=== PATIENT | female | born 1950 | race Caucasian/White ===

== ENCOUNTER → 2017-04-20 | Outpatient (CLI) | payer OTHER ==
[~2017-04-20] MED LIST: ASPIRIN81 M1 PO; CARDIZEM LA180 MG PO; CELEXA40 MG PO; CEPHALEXIN500 M1 PO; CLARITIN10 MG PO; LEXAPRO20 MG PO; MEDROL DOSEPAK4 MG PO; TRIAMTERENE & H1 CAP PO; VICODIN 5/500 505 MG PO; VISTARIL25 M1 PO; XANAX0.5 MG PO; ZOCOR10 MG PO
== END | disposition home or self-care (01) ==
LOC: LAB 01:26 → CT 11:00 → LAB 11:00
DX: J44.9 Chronic obstructive pulmonary disease, unspecified (principal); I25.10 Atherosclerotic heart disease of native coronary artery without angina pectoris; R93.8 Abnormal findings on diagnostic imaging of other specified body structures

== ENCOUNTER → 2017-04-27 | Outpatient (CLI) | payer OTHER | END | disposition home or self-care (01) | LOC: WOUNDCARE 10:21 | DX: I87.332 Chronic venous hypertension (idiopathic) with ulcer and inflammation of left lower extremity (principal); L97.222 Non-pressure chronic ulcer of left calf with fat layer exposed; I10 Essential (primary) hypertension; F41.9 Anxiety disorder, unspecified; F32.9 Major depressive disorder, single episode, unspecified; E78.00 Pure hypercholesterolemia, unspecified; F17.210 Nicotine dependence, cigarettes, uncomplicated; Z90.710 Acquired absence of both cervix and uterus; Z72.89 Other problems related to lifestyle ==

== ENCOUNTER → 2017-05-04 | Outpatient (CLI) | payer OTHER | END | disposition home or self-care (01) | LOC: WOUNDCARE 01:10 | DX: I87.332 Chronic venous hypertension (idiopathic) with ulcer and inflammation of left lower extremity (principal); L97.222 Non-pressure chronic ulcer of left calf with fat layer exposed; S81.801D Unspecified open wound, right lower leg, subsequent encounter; F41.9 Anxiety disorder, unspecified; F32.9 Major depressive disorder, single episode, unspecified; E78.00 Pure hypercholesterolemia, unspecified; F17.210 Nicotine dependence, cigarettes, uncomplicated; Z72.89 Other problems related to lifestyle; Z90.710 Acquired absence of both cervix and uterus; X58.XXXD Exposure to other specified factors, subsequent encounter ==

== ENCOUNTER → 2017-05-11 | Outpatient (CLI) | payer OTHER | LOC: WOUNDCARE 04:00 | DX: I87.332 Chronic venous hypertension (idiopathic) with ulcer and inflammation of left lower extremity (principal); L97.222 Non-pressure chronic ulcer of left calf with fat layer exposed; G89.29 Other chronic pain; F41.9 Anxiety disorder, unspecified; E78.00 Pure hypercholesterolemia, unspecified; F32.9 Major depressive disorder, single episode, unspecified; F17.210 Nicotine dependence, cigarettes, uncomplicated; Z72.89 Other problems related to lifestyle; Z90.710 Acquired absence of both cervix and uterus ==

== ENCOUNTER → 2017-05-18 | Outpatient (CLI) | payer OTHER | LOC: WOUNDCARE 01:08 | DX: I87.332 Chronic venous hypertension (idiopathic) with ulcer and inflammation of left lower extremity (principal); L97.222 Non-pressure chronic ulcer of left calf with fat layer exposed; G89.29 Other chronic pain; F41.9 Anxiety disorder, unspecified; F32.9 Major depressive disorder, single episode, unspecified; E78.00 Pure hypercholesterolemia, unspecified; F17.210 Nicotine dependence, cigarettes, uncomplicated; Z72.89 Other problems related to lifestyle; Z90.710 Acquired absence of both cervix and uterus ==

== ENCOUNTER → 2017-05-25 | Outpatient (CLI) | payer OTHER | END | disposition home or self-care (01) | LOC: WOUNDCARE 04:37 | DX: L97.821 Non-pressure chronic ulcer of other part of left lower leg limited to breakdown of skin (principal); I10 Essential (primary) hypertension; F41.9 Anxiety disorder, unspecified; F32.9 Major depressive disorder, single episode, unspecified; F17.210 Nicotine dependence, cigarettes, uncomplicated; E78.00 Pure hypercholesterolemia, unspecified; Z90.710 Acquired absence of both cervix and uterus; Z72.89 Other problems related to lifestyle ==

== ENCOUNTER → 2017-06-01 | Outpatient (CLI) | payer OTHER | END | disposition home or self-care (01) | LOC: WOUNDCARE 03:25 | DX: I87.332 Chronic venous hypertension (idiopathic) with ulcer and inflammation of left lower extremity (principal); L97.222 Non-pressure chronic ulcer of left calf with fat layer exposed; G89.29 Other chronic pain; F41.9 Anxiety disorder, unspecified; F32.9 Major depressive disorder, single episode, unspecified; E78.00 Pure hypercholesterolemia, unspecified; Z90.710 Acquired absence of both cervix and uterus; F17.210 Nicotine dependence, cigarettes, uncomplicated; Z72.89 Other problems related to lifestyle ==

== ENCOUNTER → 2017-06-08 | Outpatient (CLI) | payer OTHER | END | disposition home or self-care (01) | LOC: WOUNDCARE 04:27 | DX: I87.332 Chronic venous hypertension (idiopathic) with ulcer and inflammation of left lower extremity (principal); L97.222 Non-pressure chronic ulcer of left calf with fat layer exposed; F41.9 Anxiety disorder, unspecified; G89.29 Other chronic pain; I10 Essential (primary) hypertension; F32.9 Major depressive disorder, single episode, unspecified; E78.00 Pure hypercholesterolemia, unspecified; F17.210 Nicotine dependence, cigarettes, uncomplicated; Z72.89 Other problems related to lifestyle; Z90.710 Acquired absence of both cervix and uterus ==

== ENCOUNTER → 2018-02-07 | Outpatient (CLI) | payer MEDICARE, MEDICAID | END | disposition home or self-care (01) | LOC: CT 07:57 | DX: Z13.6 Encounter for screening for cardiovascular disorders (principal); I25.10 Atherosclerotic heart disease of native coronary artery without angina pectoris; R07.81 Pleurodynia ==

== ENCOUNTER 2019-03-15 15:16 | Emergency (ER) | payer MEDICARE ==
[~2019-03-15] VITALS: Ht 152.4 cm; Wt 59.0 kg
[2019-03-15] MEDS ORDERED: DOXYCYCLINE100 M3 PO (16:59)
== END 2019-03-15 20:28 | disposition home or self-care (01) ==
LOC: ED 15:16
DX: S81.811A Laceration without foreign body, right lower leg, initial encounter (principal); L08.89 Other specified local infections of the skin and subcutaneous tissue; Z90.710 Acquired absence of both cervix and uterus; Z98.51 Tubal ligation status; Z79.899 Other long term (current) drug therapy; Z79.82 Long term (current) use of aspirin; Z88.6 Allergy status to analgesic agent; Z88.2 Allergy status to sulfonamides; Z91.013 Allergy to seafood; W01.0XXA Fall on same level from slipping, tripping and stumbling without subsequent striking against object, initial encounter; Y93.89 Activity, other specified; Y92.091 Bathroom in other non-institutional residence as the place of occurrence of the external cause; Y99.9 Unspecified external cause status

== ENCOUNTER → 2019-04-05 | Outpatient (CLI) | payer MEDICARE ==
[~2019-04-05] MED LIST changes: +DOXYCYCLINE100 M3 PO
== END | disposition home or self-care (01) ==
LOC: US 01:53
DX: I73.9 Peripheral vascular disease, unspecified (principal); I10 Essential (primary) hypertension; Z87.891 Personal history of nicotine dependence

== ENCOUNTER 2020-10-29 18:09 | Observation (INO) | payer MEDICARE, MEDICAID ==
[~2020-10-29] VITALS: Ht 152.4 cm; Wt 73.7 kg
[2020-10-29 18:14] VITALS: BP 115/71
[2020-10-29 18:53] LABS: BASO # 0.1 10*3/uL (0.0-0.1); BASO % 0.8 % (0.0-1.0); EOS # 0.1 10*3/uL (0.0-0.4); EOS % 1.1 % (1.0-4.0); HEMATOCRIT 37.3 % (37.0-47.0); LYMPH # 2.2 10*3/uL (1.3-4.4); LYMPH % 34.1 % (27.0-41.0); MEAN CORPUSCULAR HGB 32.8 pg (27.0-31.0); MEAN CORPUSCULAR HGB CONC 33.5 g/dl (33.0-37.0); MEAN PLATELET VOLUME 8.9 fl (9.6-12.3); MONO # 0.4 10*3/uL (0.1-1.0); MONO % 6.4 % (3.0-9.0); NEUT # 3.8 10*3/uL (2.3-7.9); NEUT % 57.3 % (47.0-73.0); PLATELET COUNT AUTOMATED 313 10*3/uL (130-400); RED BLOOD COUNT 3.81 10*6/uL (4.10-5.10); RED CELL DISTRI WIDTH 12.6 % (0-14.5); WHITE BLOOD COUNT 6.6 10*3/uL (4.8-10.8)
[2020-10-29 18:54] LABS: MEAN CELL VOLUME 97.9 fl (81.0-99.0)
[2020-10-29 19:06] LABS: ALBUMIN 3.5 gm/dl (3.1-4.5); ALKALINE PHOSPHATASE 124 U/L (45-117); BUN 7 mg/dl (7-24); CHLORIDE 95 mmol/L (98-107); POTASSIUM 4.6 mmol/L (3.5-5.1); SGOT/AST 21 IU/L (3-35); SGPT/ALT 33 U/L (12-78); SODIUM 126 mmol/L (136-145); TOTAL PROTEIN 7.2 gm/dL (6.4-8.2)
[2020-10-29 19:12] LABS: TROPONIN I < 0.015 ng/ml (<0.045)
[2020-10-29 21:07] VITALS: BP 115/81
[2020-10-29 23:00] VITALS: BP 116/78
[2020-10-30 06:32] LABS: CHLORIDE 99 mmol/L (98-107); POTASSIUM 4.1 mmol/L (3.5-5.1); SODIUM 129 mmol/L (136-145)
[2020-10-30 06:42] LABS: BUN 15 mg/dl (7-24); CREATININE 0.71 mg/dL (0.55-1.02)
[2020-10-30 08:00] VITALS: BP 125/81
[2020-10-30 12:00] VITALS: BP 104/66
[2020-10-30 16:00] VITALS: BP 102/63
[2020-10-30 21:07] VITALS: BP 93/66
[2020-10-31 00:19] VITALS: BP 104/67
[2020-10-31 06:39] LABS: BASO % 0.6 % (0.0-1.0); EOS # 0.1 10*3/uL (0.0-0.4); EOS % 1.9 % (1.0-4.0); HEMATOCRIT 35.2 % (37.0-47.0); LYMPH # 2.2 10*3/uL (1.3-4.4); LYMPH % 34.9 % (27.0-41.0); MONO # 0.4 10*3/uL (0.1-1.0); MONO % 6.1 % (3.0-9.0); NEUT # 3.5 10*3/uL (2.3-7.9); NEUT % 56.2 % (47.0-73.0); PLATELET COUNT AUTOMATED 316 10*3/uL (130-400); RED BLOOD COUNT 3.52 10*6/uL (4.10-5.10); WHITE BLOOD COUNT 6.2 10*3/uL (4.8-10.8)
[2020-10-31 06:54] LABS: BUN 15 mg/dl (7-24); CHLORIDE 100 mmol/L (98-107); CREATININE 0.71 mg/dL (0.55-1.02); POTASSIUM 4.4 mmol/L (3.5-5.1); SODIUM 132 mmol/L (136-145)
[2020-10-31 08:00] VITALS: BP 112/65
[2020-10-31 16:00] VITALS: BP 111/62
[2020-10-31 20:16] VITALS: BP 108/65
[2020-11-01 00:31] VITALS: BP 131/71
[2020-11-01] MEDS ORDERED: FUROSEMIDE40 MG PO (07:01)
[2020-11-01] MEDS ORDERED: CARDIZEM CD240 M1 PO (07:01)
[2020-11-01] MEDS ORDERED: CEFUROXIME AXE250 MG PO (07:02)
[2020-11-01 08:00] VITALS: BP 142/78
== END 2020-11-01 11:34 | disposition home health service (06) ==
LOC: ED 18:09 → EDHOLD 20:17 → 4E 20:50
PROVIDERS: Internal Medicine; ADMIT Internal Medicine; ATTEND Internal Medicine
DX: E87.1 Hypo-osmolality and hyponatremia (principal); R79.9 Abnormal finding of blood chemistry, unspecified; F17.210 Nicotine dependence, cigarettes, uncomplicated; J98.11 Atelectasis; J90 Pleural effusion, not elsewhere classified; I10 Essential (primary) hypertension; R62.7 Adult failure to thrive; M54.5 Low back pain; G89.29 Other chronic pain; J44.9 Chronic obstructive pulmonary disease, unspecified; F10.10 Alcohol abuse, uncomplicated; E87.8 Other disorders of electrolyte and fluid balance, not elsewhere classified; S22.42XA Multiple fractures of ribs, left side, initial encounter for closed fracture; W19.XXXA Unspecified fall, initial encounter; Y93.89 Activity, other specified; Y92.89 Other specified places as the place of occurrence of the external cause; Y99.8 Other external cause status; Z90.710 Acquired absence of both cervix and uterus; Z98.890 Other specified postprocedural states

== ENCOUNTER 2021-04-17 15:25 | Emergency (ER) | payer MEDICARE, MEDICAID ==
[~2021-04-17] VITALS: Ht 152.4 cm; Wt 68.9 kg
[~2021-04-17 15:25] MED LIST changes: +CARDIZEM CD240 M1 PO; +CEFUROXIME AXE250 MG PO; +FUROSEMIDE40 MG PO
[2021-04-18 01:49] LABS: BASO % 0.4 % (0.0-1.0); EOS % 0.8 % (1.0-4.0); HEMATOCRIT 36.5 % (37.0-47.0); LYMPH # 1.8 10*3/uL (1.3-4.4); LYMPH % 35.1 % (27.0-41.0); MEAN CELL VOLUME 97.9 fl (81.0-99.0); MEAN CORPUSCULAR HGB 33.5 pg (27.0-31.0); MEAN CORPUSCULAR HGB CONC 34.2 g/dl (33.0-37.0); MEAN PLATELET VOLUME 9.3 fl (9.6-12.3); MONO # 0.3 10*3/uL (0.1-1.0); MONO % 4.9 % (3.0-9.0); NEUT % 58.4 % (47.0-73.0); PLATELET COUNT AUTOMATED 179 10*3/uL (130-400); RED BLOOD COUNT 3.73 10*6/uL (4.10-5.10); RED CELL DISTRI WIDTH 11.9 % (0-14.5); WHITE BLOOD COUNT 5.1 10*3/uL (4.8-10.8)
[2021-04-18 02:04] LABS: ALBUMIN 3.5 gm/dl (3.1-4.5); ALKALINE PHOSPHATASE 87 U/L (45-117); BUN 10 mg/dl (7-24); CHLORIDE 103 mmol/L (98-107); CREATININE 0.57 mg/dL (0.55-1.02); POTASSIUM 4.6 mmol/L (3.5-5.1); SGOT/AST 19 IU/L (3-35); SGPT/ALT 23 U/L (12-78); SODIUM 135 mmol/L (136-145); TOTAL PROTEIN 6.6 gm/dL (6.4-8.2)
== END 2021-04-18 04:06 | disposition short-term general hospital (02) ==
LOC: ED 15:25
PROVIDERS: Emergency Medicine
DX: S22.088A Other fracture of T11-T12 vertebra, initial encounter for closed fracture (principal); Z88.2 Allergy status to sulfonamides; Z91.013 Allergy to seafood; Z88.6 Allergy status to analgesic agent; Z79.899 Other long term (current) drug therapy; W10.8XXA Fall (on) (from) other stairs and steps, initial encounter; Y93.89 Activity, other specified; Y92.89 Other specified places as the place of occurrence of the external cause; Y99.8 Other external cause status

== ENCOUNTER → 2021-07-20 | Outpatient (CLI) | payer MEDICARE, MEDICAID | END | disposition home or self-care (01) | LOC: RAD 00:29 | PROVIDERS: ATTEND Internal Medicine | DX: M81.0 Age-related osteoporosis without current pathological fracture (principal); M41.84 Other forms of scoliosis, thoracic region; M48.04 Spinal stenosis, thoracic region; M48.02 Spinal stenosis, cervical region; M85.88 Other specified disorders of bone density and structure, other site; Z78.0 Asymptomatic menopausal state ==

== ENCOUNTER → 2021-10-29 | Outpatient (CLI) | payer MEDICARE, MEDICAID | END | disposition home or self-care (01) | LOC: MAMMO 14:17 | PROVIDERS: ATTEND Internal Medicine | DX: Z12.31 Encounter for screening mammogram for malignant neoplasm of breast (principal) ==

== ENCOUNTER → 2021-12-18 | Outpatient (CLI) | payer MEDICARE, MEDICAID ==
[2021-12-18 14:35] LABS: BASO % 0.9 % (0.0-1.0); EOS # 0.1 10*3/uL (0.0-0.4); EOS % 1.1 % (1.0-4.0); HEMATOCRIT 42.8 % (37.0-47.0); LYMPH # 2.2 10*3/uL (1.3-4.4); LYMPH % 47.7 % (27.0-41.0); MEAN CELL VOLUME 94.3 fl (81.0-99.0); MEAN CORPUSCULAR HGB 32.8 pg (27.0-31.0); MEAN CORPUSCULAR HGB CONC 34.8 g/dl (33.0-37.0); MEAN PLATELET VOLUME 9.1 fl (9.6-12.3); MONO # 0.3 10*3/uL (0.1-1.0); MONO % 5.5 % (3.0-9.0); NEUT % 44.6 % (47.0-73.0); PLATELET COUNT AUTOMATED 221 10*3/uL (130-400); RED BLOOD COUNT 4.54 10*6/uL (4.10-5.10); RED CELL DISTRI WIDTH 12.1 % (0-14.5); WHITE BLOOD COUNT 4.6 10*3/uL (4.8-10.8)
[2021-12-18 14:40] LABS: BUN 6 mg/dl (7-24); CHLORIDE 105 mmol/L (98-107); CHOLESTEROL 144 mg/dL (<200); CREATININE 0.72 mg/dL (0.55-1.02); LDL CHOLESTEROL 39 mg/dL (9-159); POTASSIUM 4.3 mmol/L (3.5-5.1); SGOT/AST 16 IU/L (3-35); SODIUM 135 mmol/L (136-145); TOTAL PROTEIN 7.4 gm/dL (6.4-8.2); TRIGLYCERIDES 173 mg/dl (<150)
[2021-12-18 14:45] LABS: ALKALINE PHOSPHATASE 91 U/L (45-117); FREE T4 0.79 ng/dl (0.76-1.46); SGPT/ALT 19 U/L (12-78); T3 UPTAKE 33 % (31-39)
== END | disposition home or self-care (01) ==
LOC: LAB 00:34 → CT 14:00 → LAB 14:00
PROVIDERS: ATTEND Internal Medicine
DX: R91.8 Other nonspecific abnormal finding of lung field (principal); J98.11 Atelectasis; I25.10 Atherosclerotic heart disease of native coronary artery without angina pectoris; I71.2 Thoracic aortic aneurysm, without rupture; I10 Essential (primary) hypertension; E55.9 Vitamin D deficiency, unspecified; Z13.0 Encounter for screening for diseases of the blood and blood-forming organs and certain disorders involving the immune mechanism; Z13.1 Encounter for screening for diabetes mellitus; Z13.21 Encounter for screening for nutritional disorder; Z13.220 Encounter for screening for lipoid disorders; Z13.228 Encounter for screening for other metabolic disorders; Z13.29 Encounter for screening for other suspected endocrine disorder; Z13.6 Encounter for screening for cardiovascular disorders; Z13.89 Encounter for screening for other disorder; Z13.9 Encounter for screening, unspecified

== ENCOUNTER → 2022-06-14 | Outpatient (CLI) | payer MEDICARE, MEDICAID | LOC: CT 08:51 | PROVIDERS: ATTEND Internal Medicine | DX: I71.21 Aneurysm of the ascending aorta, without rupture (principal); I10 Essential (primary) hypertension; I25.10 Atherosclerotic heart disease of native coronary artery without angina pectoris ==

== ENCOUNTER → 2022-11-18 | Outpatient (CLI) | payer MEDICARE, MEDICAID ==
[2022-11-18 13:22] LABS: BASO % 0.7 % (0.0-1.0); EOS # 0.1 10*3/uL (0.0-0.4); EOS % 0.9 % (1.0-4.0); HEMATOCRIT 43.3 % (37.0-47.0); LYMPH # 2.4 10*3/uL (1.3-4.4); LYMPH % 41.4 % (27.0-41.0); MEAN CELL VOLUME 94.5 fl (81.0-99.0); MEAN CORPUSCULAR HGB 32.5 pg (27.0-31.0); MEAN CORPUSCULAR HGB CONC 34.4 g/dl (33.0-37.0); MEAN PLATELET VOLUME 9.4 fl (9.6-12.3); MONO # 0.3 10*3/uL (0.1-1.0); MONO % 5.8 % (3.0-9.0); NEUT # 2.9 10*3/uL (2.3-7.9); NEUT % 50.8 % (47.0-73.0); PLATELET COUNT AUTOMATED 250 10*3/uL (130-400); RED BLOOD COUNT 4.58 10*6/uL (4.10-5.10); RED CELL DISTRI WIDTH 12.8 % (0-14.5); WHITE BLOOD COUNT 5.7 10*3/uL (4.8-10.8)
[2022-11-18 14:07] LABS: ALKALINE PHOSPHATASE 80 U/L (46-116); CHLORIDE 101 mmol/L (98-107); CHOLESTEROL 177 mg/dL (<200); FREE T4 0.79 ng/dl (0.89-1.76); LDL CHOLESTEROL 80 mg/dL (9-159); SGPT/ALT 32 U/L (10-49); THYROID STIM HORMONE (HS) 8.038 uIU/ml (0.550-4.780); TOTAL PROTEIN 7.3 gm/dL (6.0-8.0); TRIGLYCERIDES 89 mg/dl (<150)
[2022-11-18 14:09] LABS: BUN < 5 mg/dl (9-23); VITAMIN D, 25-HYDROXY 59.2 ng/mL (30-100)
== END | disposition home or self-care (01) ==
LOC: LAB 00:21 → CT 13:00 → LAB 13:00
PROVIDERS: ATTEND Internal Medicine
DX: R91.1 Solitary pulmonary nodule (principal); I71.20 Thoracic aortic aneurysm, without rupture, unspecified; F41.1 Generalized anxiety disorder; M47.816 Spondylosis without myelopathy or radiculopathy, lumbar region; E78.2 Mixed hyperlipidemia; D51.9 Vitamin B12 deficiency anemia, unspecified; F17.210 Nicotine dependence, cigarettes, uncomplicated; Z79.891 Long term (current) use of opiate analgesic; F10.20 Alcohol dependence, uncomplicated; F33.0 Major depressive disorder, recurrent, mild; Z13.0 Encounter for screening for diseases of the blood and blood-forming organs and certain disorders involving the immune mechanism; Z13.1 Encounter for screening for diabetes mellitus; Z13.21 Encounter for screening for nutritional disorder; Z13.228 Encounter for screening for other metabolic disorders; Z13.29 Encounter for screening for other suspected endocrine disorder; Z13.89 Encounter for screening for other disorder; Z13.6 Encounter for screening for cardiovascular disorders; Z13.9 Encounter for screening, unspecified; R91.8 Other nonspecific abnormal finding of lung field

== ENCOUNTER → 2023-03-28 | Outpatient (CLI) | payer MEDICARE, MEDICAID ==
[2023-03-28 13:11] LABS: FREE T4 1.4 ng/dl (0.89-1.76)
== END | disposition home or self-care (01) ==
LOC: LAB 01:06
PROVIDERS: ATTEND Internal Medicine
DX: I10 Essential (primary) hypertension (principal); D51.9 Vitamin B12 deficiency anemia, unspecified; F41.1 Generalized anxiety disorder; F33.0 Major depressive disorder, recurrent, mild

== ENCOUNTER 2023-08-24 10:11 | Emergency (ER) | payer MEDICARE, MEDICAID ==
[~2023-08-24] VITALS: Wt 64.4 kg
[~2023-08-24 10:11] MED LIST changes: +ATARAX,VISTARIL50 MG PO; +ELIQUIS5 M1 PO; +LASIX40 MG PO; +NATURE'S BLEND100 M2 PO; +NEURONTIN300 MG PO; +POTASSIUM CHLO10 ME5 PO; +SYNTHROID,LEVO75 MCG PO
[2023-08-24] MEDS ORDERED: APAP500 MG PO (10:57)
[2023-08-24] MEDS ORDERED: NATURE'S BLEND F1 MG PO (10:58)
[2023-08-24] MEDS ORDERED: FLOMAX0.4 MG PO (10:58)
[2023-08-24] MEDS ORDERED: TRAMADOL HCL50 MG PO (11:00)
== END 2023-08-24 15:19 ==
LOC: ED 10:11
DX: S22.088A Other fracture of T11-T12 vertebra, initial encounter for closed fracture (principal); F41.9 Anxiety disorder, unspecified; F32.A Depression, unspecified; I10 Essential (primary) hypertension; E78.00 Pure hypercholesterolemia, unspecified; Z88.8 Allergy status to other drugs, medicaments and biological substances; Z88.2 Allergy status to sulfonamides; Z88.5 Allergy status to narcotic agent; Z91.013 Allergy to seafood; Z91.041 Radiographic dye allergy status; Z90.710 Acquired absence of both cervix and uterus; Z98.51 Tubal ligation status; X58.XXXA Exposure to other specified factors, initial encounter; Y93.89 Activity, other specified; Y92.129 Unspecified place in nursing home as the place of occurrence of the external cause; Y99.8 Other external cause status